=== PATIENT | female | born 1940 | race Caucasian/White ===

== ENCOUNTER 2021-02-03 09:15 | Outpatient (CLI) | payer MEDICARE, BC | END 2021-02-03 23:59 | disposition home or self-care (01) | LOC: RAD 09:15 | PROVIDERS: ATTEND Nurse Practitioner Family | DX: R13.10 Dysphagia, unspecified (principal) | CPT/HCPCS: 74230 ==

== ENCOUNTER 2021-03-18 10:20 | Emergency (ER) | payer MEDICARE, BC ==
[~2021-03-18] VITALS: Ht 162.6 cm; Wt 82.0 kg
--- NOTE | 2021-03-18 10:33 | NUR ---
KIM. REPORT RECEIVED FROM EMS. PT C/O GENERALIZED WEAKNESS/DZY/NAUSEA SINCE THIS AM. 2ND COVID SHOT 45 DAYS AGO. PT'S AOX4. RESPS EVEN AND UNLABORED. DENIES ANY PAIN AT THIS TIME. ALL MONITORS IN PLACE. CALL LIGHT WITHIN REACH.
--- NOTE | 2021-03-18 10:53 | NUR ---
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
[2021-03-18] MEDS ORDERED: SODIUM CHLORIDE FLUSH 10ML SYR IVF ONE (11:00)
[2021-03-18] MEDS ORDERED: SODIUM CHLORIDE 0.9% 1,000ML IVBOLUS ONE (11:00)
[2021-03-18] MEDS ORDERED: MECLIZINE CHEWABLE 25 MG TAB PO ONE (11:00)
[2021-03-18] MEDS ORDERED: MECLIZINE CHEWABLE 25 MG TAB ONE (11:04)
--- NOTE | 2021-03-18 11:05 | NUR ---
pt amb to br with steady gait. urine cup given.
--- NOTE | 2021-03-18 11:27 | NUR ---
piv est on r hand with no complications. ns infusing at this time. pt medicated per emar. pt tolerated well.
--- NOTE | 2021-03-18 11:28 | NUR ---
ua sent at this time.
[2021-03-18 11:48] LABS: BASOPHILS % (AUTO) 1 % (0-1); EOSINOPHILS % (AUTO) 2 % (1-7); LYMPHOCYTES % (AUTO) 26 % (22-44); MEAN CORPUSCULAR HEMOGLOBIN 28.3 pg (27.0-34.8); MEAN CORPUSCULAR HGB CONC 32.8 g/dL (32.4-35.8); MEAN PLATELET VOLUME 8.1 fL (7.4-10.4); MONOCYTES % (AUTO) 6 % (2-9); NEUTROPHILS % (AUTO) 66 % (42-75); PLATELET COUNT 238 x10^3/uL (130-400); RED CELL DISTRIBUTION WIDTH 15.2 % (9.6-15.2)
[2021-03-18 11:58] LABS: MICROSCOPIC NOT IND
[2021-03-18 12:04] LABS: ALBUMIN 3.9 g/dL (3.4-5.0); ANION GAP 5 mmol/L (5-15); CALCIUM 9.4 mg/dL (8.5-10.1); CHLORIDE 110 mmol/L (98-107)
[2021-03-18 12:07] LABS: ALANINE AMINOTRANSFERASE 19 U/L (12-78); ALKALINE PHOSPHATASE 88 U/L (45-117); BILIRUBIN,TOTAL 0.4 mg/dL (0.2-1.0); CREATININE 1.22 mg/dL (0.55-1.02); MD NO; TOTAL PROTEIN 7.5 g/dL (6.4-8.2); TROPONIN I < 0.015 ng/mL (0.000-0.045)
--- NOTE | 2021-03-18 12:35 | NUR ---
pt amb to br and back to room with steady gait.
--- NOTE | 2021-03-18 13:36 | NUR ---
pt amb to br and back to room with steady gait at this time.
[2021-03-18 13:56] VITALS: BP 140/52
--- NOTE | 2021-03-18 14:44 | NUR ---
pt resting in [facility]. pt's aox4. resps even and unlabored. awaiting dc papers.
--- NOTE | 2021-03-18 15:12 | NUR ---
Patient given discharge instructions and they have confirmed that they understand the instructions. Patient ambulatory with steady gait.
== END 2021-03-18 15:13 | disposition home or self-care (01) ==
LOC: ED 13:55
DX: R42 Dizziness and giddiness (principal); R53.1 Weakness; R11.2 Nausea with vomiting, unspecified; I10 Essential (primary) hypertension; R94.31 Abnormal electrocardiogram [ECG] [EKG]; Z86.73 Personal history of transient ischemic attack (TIA), and cerebral infarction without residual deficits; Z86.39 Personal history of other endocrine, nutritional and metabolic disease
CPT/HCPCS: 36415; 70450; 71045; 80053; 81003; 83605; 84484; 85025; 93005; 96360; 96361; 99285; J7030

== ENCOUNTER 2021-08-05 10:05 | Outpatient (CLI) | payer MEDICARE, BC ==
[2021-08-05 10:40] LABS: MICROSCOPIC NOT IND
[2021-08-05 10:47] LABS: BASOPHILS % (AUTO) 1 % (0-1); EOSINOPHILS % (AUTO) 2 % (1-7); LYMPHOCYTES % (AUTO) 42 % (22-44); MEAN CORPUSCULAR HEMOGLOBIN 28.4 pg (27.0-34.8); MEAN CORPUSCULAR HGB CONC 32.4 g/dL (32.4-35.8); MEAN PLATELET VOLUME 8.5 fL (7.4-10.4); MONOCYTES % (AUTO) 8 % (2-9); NEUTROPHILS % (AUTO) 47 % (42-75); PLATELET COUNT 275 x10^3/uL (130-400); RED BLOOD COUNT 4.79 x10^6/uL (3.82-5.3); RED CELL DISTRIBUTION WIDTH 15.3 % (9.6-15.2)
[2021-08-05 10:56] LABS: ALBUMIN 3.5 g/dL (3.4-5.0); ANION GAP 6 mmol/L (5-15); CALCIUM 9.4 mg/dL (8.5-10.1); CHLORIDE 109 mmol/L (98-107); CREATININE 1.29 mg/dL (0.55-1.02)
== END 2021-08-05 23:59 | disposition home or self-care (01) ==
LOC: LAB 10:05
PROVIDERS: ATTEND Internal Medicine Nephrology
DX: I12.9 Hypertensive chronic kidney disease with stage 1 through stage 4 chronic kidney disease, or unspecified chronic kidney disease (principal); N18.32 Chronic kidney disease, stage 3b; R32 Unspecified urinary incontinence; Z86.79 Personal history of other diseases of the circulatory system
CPT/HCPCS: 36415; 80069; 81003; 82043; 82306; 82570; 83735; 84156; 84550; 85025